=== PATIENT | male | born 1940 | race Caucasian/White ===

== ENCOUNTER 2016-12-26 03:50 | Inpatient (IN) | payer OTHER ==
[~2016-12-26] VITALS: Ht 195.6 cm; Wt 83.0 kg
--- NOTE | 2016-12-26 00:33 | NUR ---
PT REPOSITIONED Q2H ON TELEMETRY SB BBB INCONTINENT SPONGE BATH GIVEN , VINH CHANGED, PT CONFUSED BUT COOPERATIVE TO FOLLOW COMMANDS Addendum: 12/27/16 at 0039 by Veronica Hermosillo RN THIS DOCUMENTATION IS FOR 12/27/16 AT 0030
--- NOTE | 2016-12-26 04:00 | NUR ---
Dr. Salinas evaluating patient
--- NOTE | 2016-12-26 04:00 | NUR ---
PT TAKEN TO BED 6 Addendum: 12/26/16 at 0405 by MUSVAO PT BIBA BLS. TAKEN TO BED 6
[2016-12-26 04:01] VITALS: BP 129/98
--- NOTE | 2016-12-26 04:37 | NUR ---
X-Ray at bedside.
--- NOTE | 2016-12-26 06:08 | NUR ---
Patient appears to be resting comfortably in bed. Vital Signs within normal limits. Respirations even and unlabored.
--- NOTE | 2016-12-26 06:11 | NUR ---
CALLED UP THE FAMILY BUT NOBODYS ANSWERING THE PHONE, LEAVE MESSAGES TO CALL US BACK AND TO BRING HIS MEDICINES, AND HES FOR ADMISSION.THE PATIENT ONLY KNEW THAT HES TAKING 15 PILLS DAILY BUT HE DOESNT KNOW THE NAMES.
[2016-12-26] MEDS ORDERED: LORazepam 0.5 MG TAB PO ONE (06:25)
[2016-12-26] MEDS ORDERED: ASPIRIN 325 MG TAB PO ONE (06:55)
--- NOTE | 2016-12-26 07:10 | NUR ---
Patient will be admitted to care of [facility] [place] . Admited to TELEMETRY. Will go to room 121A. Belongings list completed. Report to MYRNA BLACKMAN.
--- NOTE | 2016-12-26 07:20 | NUR ---
PT IS NOT HERE YET. GAVE REPORT TO MARISEL NORRIS.
--- NOTE | 2016-12-26 07:22 | NUR ---
RECEIVED REPORT FROM BEBA NORRIS.
--- NOTE | 2016-12-26 07:55 | NUR ---
PT ON UNIT. NO S/S OF ACUTE DISTRESS. PT IS AOX4, WITH PERIODS OF CONFUSION. IV SITE PATENT AND INTACT. PT DENIES PAIN. PT ORIENTED TO ROOM. CALL LIGHT WITHIN REACH. SAFETY MEASURES ENSURED. WILL CONTINUE TO MONITOR.
[2016-12-26 08:34] VITALS: BP 123/71
[2016-12-26] MEDS ORDERED: ACETAMINOPHEN 325 MG TAB PO PRN (09:00)
[2016-12-26] MEDS ORDERED: ONDANSETRON 4 MG/2 ML VIAL IVP PRN (09:00)
[2016-12-26] MEDS ORDERED: HYDROcodone/APAP 5/325 MG 1 TAB TAB PO PRN (09:00)
[2016-12-26] MEDS: LISINOPRIL 5 MG TAB PO SCH (09:50)
[2016-12-26] MEDS: ATORVASTATIN 20 MG TAB PO SCH (09:50)
[2016-12-26] MEDS: METOPROLOL 25 MG TAB PO SCH ×2 (09:50→21:00)
[2016-12-26] MEDS: NACL 0.9% 1,000 ML IV SCH ×2 (09:50→21:26)
--- NOTE | 2016-12-26 10:51 | NUR ---
PT RESTING IN BED. NO S/S OF ACUTE DISTRESS. PT DENIES PAIN. CALL LIGHT WITHIN REACH. SAFETY MEASURES ENSURED. WILL CONTINUE TO MONITOR.
[2016-12-26 12:00] VITALS: BP 98/55
--- NOTE | 2016-12-26 12:48 | NUR ---
PT RESTING IN BED. NO S/S OF ACUTE DISTRESS. PT DENIES PAIN. IV SITE PATENT AND INTACT. CALL LIGHT WITHIN REACH. SAFETY MEASURES ENSURED. STEPDAUGHTER AT BEDSIDE. WILL CONTINUE TO MONITOR.
[2016-12-26] MEDS ORDERED: SELEGILINE 5 MG TAB PO SCH ×4 (13:00→21:00)
[2016-12-26] MEDS ORDERED: QUEtiapine FUMARATE 25 MG TAB PO SCH ×2 (13:00→14:10)
[2016-12-26] MEDS ORDERED: CARBIDOPA/LEVODOPA 25/100 MG 1 TAB PO SCH ×3 (13:10→22:30)
--- NOTE | 2016-12-26 13:42 | NUR ---
PATIENT HAS BEEN SCREENED AND CATEGORIZED MODERATE NUTRITION RISK. PATIENT WILL BE SEEN WITHIN 3-5 DAYS OF ADMISSION. 12/28/16-12/30/[address]
--- NOTE | 2016-12-26 14:29 | NUR ---
PT RESTING IN BED. NO S/S OF ACUTE DISTRESS. PT DENIES PAIN. PT TOLERATED MEDS WELL. IV SITE PATENT AND INTACT. CALL LIGHT WITHIN REACH. WILL CONTINUE TO MONITOR.
[2016-12-26 16:00] VITALS: BP 101/57
--- NOTE | 2016-12-26 16:30 | NUR ---
NO S/S OF ACUTE DISTRESS. PT UP AND AMBULATING TO BATHROOM. CALL LIGHT WITHIN REACH. WILL CONTINUE TO MONITOR.
[2016-12-26] MEDS ORDERED: MECLIZINE 25 MG TAB PO PRN (17:55)
--- NOTE | 2016-12-26 19:14 | NUR ---
ENDORSED PLAN OF CARE TO NIGHT RN. PT REMAINS IN STABLE CONDITION
--- NOTE | 2016-12-26 19:15 | NUR ---
RECEIVED PT FROM MARISEL NORRIS PT IS AOX2 HX DEMENTIA ON TELEMETRY SB BBB IV ON LEFT HAND INFUSING WELL PT GENERAL WEAKNESS , REPOSITIONED Q2H
[2016-12-26 20:00] VITALS: BP 90/48
[2016-12-26] MEDS: clonazePAM 0.5 MG TAB PO SCH (21:34)
[2016-12-26] MEDS: CITALOPRAM 20 MG TAB PO SCH (21:34)
[2016-12-26] MEDS: QUEtiapine FUMARATE 25 MG TAB PO SCH (21:35)
[2016-12-26] MEDS: DONEPEZIL 10 MG TAB PO SCH (21:35)
[2016-12-26] MEDS: SELEGILINE 5 MG TAB PO SCH (21:36)
--- NOTE | 2016-12-26 22:00 | NUR ---
PT REPOSITIONED SPONGE BAT GIVEN , LINEN CHANGED ON TEL SB BBB
[2016-12-27] VITALS: BP 90/40
--- NOTE | 2016-12-27 00:40 | NUR ---
PT AWAKE SB BBB ON TELEMETRY REPOSITIONED, INCONTINENT LINEN CHANGED, NOT DISTRESS NOTED
[2016-12-27 04:00] VITALS: BP 96/51
--- NOTE | 2016-12-27 07:15 | NUR ---
RECEIVED REPORT FROM BEBA RN. PT SLEEPING IN BED. AAOX3. NO S/S OF ACUTE DISTRESS. PT DENIES PAIN. IV SITE PATENT AND INTACT. CALL LIGHT WITHIN REACH. SAFETY MEASURES ENSURED. WILL CONTINUE TO MONITOR.
[2016-12-27 07:47] VITALS: BP 128/57
[2016-12-27] MEDS: metFORMIN 500 MG TAB PO SCH (08:08)
[2016-12-27] MEDS: ATORVASTATIN 20 MG TAB PO SCH (08:08)
[2016-12-27] MEDS: LISINOPRIL 5 MG TAB PO SCH (08:09)
[2016-12-27] MEDS: QUEtiapine FUMARATE 25 MG TAB PO SCH ×2 (08:09→20:44)
[2016-12-27] MEDS: SELEGILINE 5 MG TAB PO SCH ×2 (08:09→20:43)
[2016-12-27] MEDS: CARBIDOPA/LEVODOPA 25/100 MG 1 TAB PO SCH ×3 (08:10→16:43)
[2016-12-27] MEDS: METOPROLOL 25 MG TAB PO SCH (08:10)
--- NOTE | 2016-12-27 10:01 | NUR ---
PT TOLERATED AM MEDS WELL. NO S/S OF ACUTE DISTRESS. PT DENIES PAIN. IV SITE PATENT AND INTACT. CALL LIGHT WITHIN REACH. SAFETY MEASURES ENSURED. WILL CONTINUE TO MONITOR.
[2016-12-27] MEDS ORDERED: MAG SULF 2000 MG/WATER PREMIX 50 ML IV SCH (10:30)
--- NOTE | 2016-12-27 11:53 | NUR ---
PT RESTING IN BED. NO S/S OF ACUTE DISTRESS. PT DENIES PAIN. CALL LIGHT WITHIN REACH. SAFETY MEASURES ENSURED. WILL CONTINUE TO MONITOR.
--- NOTE | 2016-12-27 14:57 | NUR ---
PT RESTING IN BED. NO S/S OF ACUTE DISTRESS. PT DENIES PAIN. CALL LIGHT WITHIN REACH. SAFETY MEASURES ENSURED. WILL CONTINUE TO MONITOR.
[2016-12-27 16:00] VITALS: BP 128/80
--- NOTE | 2016-12-27 19:17 | NUR ---
ENDORSED PLAN OF CARE TO NIGHT RN. PT REMAINS IN STABLE CONDITION.
--- NOTE | 2016-12-27 19:30 | NUR ---
RECEIVED FROM AM RN IN BED SITTING UP AND WATCHING TV. AWAKE AND ALERT. ABLE TO VERBALIZE SIMPLE NEEDS. NO SOB. DENIES PAIN AT THIS TIME. CALL LIGHT WITH IN REACH. ENCOURAGED TO CALL FOR ANY HELP HE MAY NEED OR IF IN PAIN. "OK". MEDICAL SURGICAL PT. AFEBRILE.
[2016-12-27] MEDS: clonazePAM 0.5 MG TAB PO SCH (20:43)
[2016-12-27] MEDS: DONEPEZIL 10 MG TAB PO SCH (20:44)
[2016-12-27] MEDS: CITALOPRAM 20 MG TAB PO SCH (20:44)
--- NOTE | 2016-12-27 23:35 | NUR ---
PT. STILL AWAKE AND WATCHING TV. ABLE TO USE CALL LIGHT FOR HELP. ENCOURAGED TO SLEEP. "NOT SLEEPY YET". BED ALARM ON.
[2016-12-28 00:22] VITALS: BP 110/68
--- NOTE | 2016-12-28 02:10 | NUR ---
PT. SLEEPING . NO RESTLESSNESS NOTED. NEEDS WILL BE ANTICIPATED AND WILL BE MET. TOTAL CARE. PT.
--- NOTE | 2016-12-28 06:20 | NUR ---
SLEPT WELL . NO RESTLESSNESS. KEPT CLEAN AND DRY. TURNED TO SIDES BY CNAS Q 2H. MAXIMUM ASSIST RT WITH HX. PARKINSON'S DSE . NEEDS ANTICIPATED AND MET THIS SHIFT. ABLE TO VERBALIZE SIMPLE NEEDS. NO COMPLAINTS DONE THIS SHIFT.
--- NOTE | 2016-12-28 07:25 | NUR ---
ENDORSED TO THE NEXT RN FOR CONTINUITY OF CARE. STILL ASLEEP BUT WAKES UP WHEN TOUCHED. NEEDS ANTICIPATED AND MET FOR THIS SHIFT.
--- NOTE | 2016-12-28 07:40 | NUR ---
RECEIVED PT LYING IN BED SLEEPING BUT WAS EASILY ROUSABLE. NO C/O PAIN VOICED BY PT. SHIFT ASSESSMENT DONE AND CHARTED. PLAN OF CARE, MEDS, TREATMENTS AND SAFETY DISCUSSED WITH PT WITH QUESTIONABLE UNDERSTANDING. WILL CONTINUE TO CHECK ON PT.
[2016-12-28 08:00] VITALS: BP 91/55
--- NOTE | 2016-12-28 09:00 | NUR ---
PT TOOK DIET AND FLUIDS WELL WHEN FED. TOOK PO MEDS WELL. WILL CONTINUE TO CHECK ON PT.
[2016-12-28] MEDS: metFORMIN 500 MG TAB PO SCH (09:31)
[2016-12-28] MEDS: SELEGILINE 5 MG TAB PO SCH ×2 (09:31→20:16)
[2016-12-28] MEDS: QUEtiapine FUMARATE 25 MG TAB PO SCH ×2 (09:31→20:16)
[2016-12-28] MEDS: CARBIDOPA/LEVODOPA 25/100 MG 1 TAB PO SCH ×3 (09:31→17:02)
--- NOTE | 2016-12-28 10:30 | NUR ---
PT TURNED AND REPOSITIONED AFTER AM CARE WITH 2 ASSISTS.
--- NOTE | 2016-12-28 12:30 | NUR ---
PT TOOK LUNCH AND FLUIDS WELL. PT'S DAUGHTER WAS IN TO SEE PT. NO CHANGES NOTED IN PT'S CONDITION.
--- NOTE | 2016-12-28 15:00 | NUR ---
PT'S DAUGHTER VOICED CONCERN RE PLAN FOR PT. DR. RICHMOND MADE AWARE OF SAME AND MD WENT TO SEE PT'S DAUGHTER AT PT'S ROOM.
[2016-12-28 16:00] VITALS: BP 95/75
--- NOTE | 2016-12-28 17:30 | NUR ---
PT WAS INCONTINENT OF URINE AND MOHIT CARE DONE AND LINEN CHANGED. PT TURNED AND REPOSITIONED. PT MEDICATED WITH TYLENOL FOR C/O BACK PAIN. WILL CONTINUE TO CHECK ON PT.
--- NOTE | 2016-12-28 19:20 | NUR ---
REPORT GIVEN TO MACIE CORBIN AT BEDSIDE. NO CHANGES NOTED IN PT'S CONDITION.
--- NOTE | 2016-12-28 19:21 | NUR ---
PATIENT IS CURRENTLY RESTING IN BED DENIES PAIN AND DISCOMFORT.PATIENT GETS CONFUSED AND KEEPS SAYING,"NOBODY HAS CAME IN THE ROOM AND HAVEN'T SEEN ANYONE FOR HOURS."PATIENT CONTINUES TO BE REORIENTED TO REALITY NEEDED.PATIENT EDUCATED ON HOW TO USE THE INCENTIVE SPIROMETER FOR BREATHING EXERCISES RETURN DEMO DONE BY THE PATIENT.PATIENT CONTINUES TO HAVE SCD'S TO BOTH LOWER EXTREMITIES CURRENTLY ON FOR DVT PROPHALAXIS.FALL PRECAUTIONS IMPLEMENTED WILL CONTINUE TO MONITOR. CALL LIGHT WITHIN REACH.
--- NOTE | 2016-12-28 19:35 | NUR ---
Patient's Plan of Care was discussed and reviewed with BRIDGE EXPERT: ADRIANA.
[2016-12-28 20:00] VITALS: BP 93/53
--- NOTE | 2016-12-28 20:16 | NUR ---
EDUCATION GIVEN ON HIS ROUTINE MEDICATION AND PATIENT TOOK HIS ROUTINE MEDICATION WELL.WILL CONTINUE TO MONITOR.
[2016-12-28] MEDS: DONEPEZIL 10 MG TAB PO SCH (20:17)
[2016-12-28] MEDS: clonazePAM 0.5 MG TAB PO SCH (20:17)
[2016-12-28] MEDS: CITALOPRAM 20 MG TAB PO SCH (20:17)
[2016-12-28] MEDS ORDERED: ATORVASTATIN 20 MG TAB PO SCH (21:00)
--- NOTE | 2016-12-28 22:30 | NUR ---
PATIENT STABLE RESTING IN BED FREQUENT VISUAL CHECKS DONE.WILL CONTINUE TO MONITOR.CALL LIGHT WITHIN REACH.
--- NOTE | 2016-12-28 23:44 | NUR ---
PATIENT SLEEPING QUIETLY AT THIS TIME PATIENT CAN BE SEEN FROM THE NURSES STATION.WILL CONTINUE TO MONITOR.
--- NOTE | 2016-12-29 02:06 | NUR ---
PATIENT CURRENTLY ASLEEP IN BED NO DISTRESS.CONTINUE TO BE DRY AND INTACT WILL CONTINUE TO MONITOR.
--- NOTE | 2016-12-29 04:50 | NUR ---
PATIENT SLEEPING WELL IN BED NO PAIN OR DICOMFORT NOTED,PATIENT CONTINUES TO BE KEPT CLEAN AND DRY WILL CONTINUE TO MONITOR.
[2016-12-29 05:00] VITALS: BP 104/56
--- NOTE | 2016-12-29 06:00 | NUR ---
PATIENT HAD ANOTHER EPISODE OF INCONTINENCE PATIENT WAS CLEANED WITH THE ASSISTANCE OF ASH BOONE.PATIENT WAS THEN PLACED SUPINE FOR BREAKFAST AND WAS GIVEN AN EXTRA BLANKET.
--- NOTE | 2016-12-29 07:25 | NUR ---
PATIENT IN BED AWAKE REPORT ENDORSED TO MYRNA HUGHES HE WILL RESUME CARE OF THE PATIENT.
--- NOTE | 2016-12-29 07:40 | NUR ---
PT LYING IN BED COMFORTABLY SLEEPING AND WAS IN NO DISTRESS. PT ROUSABLE AND VOICED NO C/O PAIN. SHIFT ASSESSMENT DONE AND CHARTED. PLAN OF CARE, MEDS, TREATMENTS AND SAFETY DISCUSSED WITH PT WITH QUESTIONABLE UNDERSTANDING. WILL CONTINUE TO CHECK PT.
[2016-12-29] MEDS: metFORMIN 500 MG TAB PO SCH (08:15)
[2016-12-29] MEDS: QUEtiapine FUMARATE 25 MG TAB PO SCH ×2 (08:16→21:26)
[2016-12-29] MEDS: CARBIDOPA/LEVODOPA 25/100 MG 1 TAB PO SCH ×3 (08:16→17:53)
[2016-12-29] MEDS: SELEGILINE 5 MG TAB PO SCH ×2 (08:16→21:26)
[2016-12-29] MEDS ORDERED: MAGNESIUM OXIDE 400 MG TAB PO SCH (08:55)
--- NOTE | 2016-12-29 09:30 | NUR ---
PT TOOK PO MEDS AND FLUIDS WELL. NO CHANGES NOTED IN PT'S CONDITION.
--- NOTE | 2016-12-29 12:30 | NUR ---
PT TOOK DIET AND FLUIDS WELL WITH ASSIST. PT'S DAUGHTER VISITING AT THIS TIEM.
[2016-12-29] MEDS ORDERED: MAGNESIUM CITRATE 300 ML BTL PO SCH (15:20)
[2016-12-29] MEDS: KETOROLAC 15 MG/ML VIAL IVP PRN ×2 (15:26→21:32)
--- NOTE | 2016-12-29 15:26 | NUR ---
TORADOL IVP GIVEN PER PRN ORDER FOR C/O ABDOMINAL PAIN 06/01. WILL CONTINUE TO CHECK ON PT.
[2016-12-29 16:03] VITALS: BP 110/69
--- NOTE | 2016-12-29 16:30 | NUR ---
PT STATED THAT HIS PAIN WAS BETTER BUT HE FELT CONSITPATED AND HAD NO BM FOR SEVERAL DAYS. DR. RICHMOND NOTIFIED OF SAME AND GAVE NEW ORDERS.
--- NOTE | 2016-12-29 18:30 | NUR ---
PT TOOK DIET AND FLUIDS WELL. MAG CITRATE GIVEN PER MD'S ORDER. NO RESULT YET AT THIS TIME.
--- NOTE | 2016-12-29 19:10 | NUR ---
PATIENT IS CURRENTLY RESTING IN BED ENCOURAGED TO DRINK THE [place] LAXATIVE PATIENT DRINKING IT WELL TAKES SIPS.PATIENT WAS CLEANED TURNED AND REPOSITIONED WITH THE ASSISTANCE OF ASH BOONE.FALL PRECAUTIONS IMPLEMENTED AND CONTINUES TO HAVE THE SCD'S ON FOR DVT PROPHALAXIS. WILL CONTINUE TO MONITOR.
--- NOTE | 2016-12-29 19:10 | NUR ---
REPORT GIVEN TO MACIE VARMA. NO CHANGES NOTED IN PT'S CONDITION.
[2016-12-29 20:00] VITALS: BP 94/51
[2016-12-29] MEDS: clonazePAM 0.5 MG TAB PO SCH (21:25)
[2016-12-29] MEDS: DONEPEZIL 10 MG TAB PO SCH (21:26)
[2016-12-29] MEDS: CITALOPRAM 20 MG TAB PO SCH (21:26)
--- NOTE | 2016-12-29 21:26 | NUR ---
EDUCATION GIVEN ON ROUTINE MEDICATIONS AND PATIENT AGREES TO TAKE THE MEDICATION.PATIENT'S MEDS CRUSHED AND MIXED WITH APPLESAUCE AND PATIENT TOOK MEDS WELL.WILL CONTINUE TO MONITOR.PATIENT TOOK ALL OF THE LAXATIVE DRINK.CALL LIGHT WITHIN REACH.
--- NOTE | 2016-12-29 22:00 | NUR ---
Patient's Plan of Care was discussed and reviewed with MACHINE STUFFER: MACIE BATES
--- NOTE | 2016-12-29 22:15 | NUR ---
PATIENT PASSING GAS.PATIENT CHECKED PATIENT REMAINS CLEAN AND DRY.WILL CONTINUE TO MONITOR.
[2016-12-30] VITALS: BP 102/64
--- NOTE | 2016-12-30 01:05 | NUR ---
PATIENT IS CURRENTLY AWAKE AND CONFUSED ON AND OFF WAS TURNED AND REPOSITIONED WITH THE ASSISTANCE OF ASH BOONE.NEEDS MET WILL CONTINUE TO MONITOR.
--- NOTE | 2016-12-30 02:40 | NUR ---
PATIENT WAS TURNED AND REPOSITIONED FOR COMFORT.
--- NOTE | 2016-12-30 04:34 | NUR ---
PATIENT WAS TURNED AND REPOSITIONED BY ASH PEREZ AND ASH BOONE.WILL CONTINUE TO MONITOR. CALL LIGHT WITHIN REACH.
[2016-12-30] MEDS: KETOROLAC 15 MG/ML VIAL IVP PRN ×2 (04:55→18:56)
--- NOTE | 2016-12-30 06:58 | NUR ---
PATIENT CURRENTLY SLEEPING SCD'S ON TO BLE AND CONTINUES EDUCATION GIVEN ON HOW TO USE THE INCENTIVE SPIROMETER.REINFORCEMENT NEEDED.PATIENT PASSING GAS DURING THE NIGHT BUT NO BOWEL MOVEMENT YET.
--- NOTE | 2016-12-30 07:10 | NUR ---
PATIENT IS CURRENTLY RESTING IN BED REPORT ENDORSED TO MYRNA AMIN AT BEDSIDE PATIENT IN NO DISTRESS SHE WILL RESUME CARE OF THE PATIENT.
--- NOTE | 2016-12-30 07:10 | NUR ---
RECEIVED REPORT FROM THE SOFA BACK UPHOLSTERER NURSE AT BEDSIDE FOR CONTINUITY OF CARE. PT IS AWAKE, BUT CONFUSED. HE WAS ASKING QUESTIONS THAT DIDN'T MAKE ANY SENSE. NOTED THE IV ON R HAND 22G SL, WRAPPED IN GAUZE. I SEE THE INCENTIVE SPIROMETER AT BEDSIDE, SCD'S IN PLACE. PER NIGHTSHIFT NURSE, DIFFICULTY SWALLOWING PILLS. NEED TO CRUSH AND MIX WITH APPLE SAUCE. WILL CONTINUE TO MONITOR PT.
[2016-12-30 08:00] VITALS: BP 116/68
[2016-12-30] MEDS: CARBIDOPA/LEVODOPA 25/100 MG 1 TAB PO SCH ×3 (09:10→17:23)
[2016-12-30] MEDS: SELEGILINE 5 MG TAB PO SCH ×2 (09:10→20:51)
[2016-12-30] MEDS: metFORMIN 500 MG TAB PO SCH (09:10)
[2016-12-30] MEDS: QUEtiapine FUMARATE 25 MG TAB PO SCH ×2 (09:11→20:54)
--- NOTE | 2016-12-30 09:15 | NUR ---
ADMINISTERED MORNING MEDS. CRUSHED AND IN APPLE SAUCE. PT TOLERATED WELL. DAUGHTER CALLED . WILL BE HERE BY NOON. WONDERING WHEN HE WILL BE TRANSFERRED.
--- NOTE | 2016-12-30 10:49 | NUR ---
CNAS ARE DONE WITH HIS MORNING ADLS. PT IS ALL DRY AND CLEAN. PT IS ASLEEP. NO SIGNS OF DISTRESS. WILL CONTINUE TO MONITOR PT.
[2016-12-30] MEDS ORDERED: ALBUTEROL SULFATE/IPRATROPIU 3 ML SOL IH PRN (11:00)
--- NOTE | 2016-12-30 11:03 | NUR ---
SS NOTE: I SPOKE WITH PT'S STEPDAUGHTER, SCOTT REGARDING SHORT TERM SNF PLACEMENT FOR REHAB. SHE STATED THAT SHE WOULD LIKE PT TO GO TO A SNF THAT IS NEAR THE [facility]. SHE ALSO STATED THAT SHE HAS MEDICAL POWER OF WAREHOUSE TEAM LEADER OVER PT AND WILL BRING A COPY OF THE PAPERWORK WHEN SHE COMES TO SEE PT LATER TODAY.
[2016-12-30] MEDS ORDERED: LACTOBACILLUS RHAMNOSUS GG 1 EACH CAP PO SCH (11:21)
--- NOTE | 2016-12-30 11:43 | NUR ---
SS NOTE: PER JILLIAN FROM [facility] ([phone]), PT CAN GO TO ROOM 37A UNDER DR. Barrie PLATA UPON DISCHARGE. SHE ALSO STATED THAT THEY ARE ABLE TO DO ZOSYN Q8H WELL IF PT WILL NEED IV ABX IN ADDITION TO REHAB.
[2016-12-30] MEDS: PIPER/TAZO 3.375GM/D5W PREMIX 50 ML IV SCH ×2 (12:09→17:13)
--- NOTE | 2016-12-30 12:30 | NUR ---
PT REFUSED LUNCH TRAY BC IT'S PORK. IT'S AGAINST HIS ORTHODOX. NOTIFIED FNS. I OFFERED HIM A CHICKEN SALAD SANDWICH. HE ATE 1/2 OF THE SANDWICH AN 1/2 OF SOUP AN 1/2 OF THE PEARS. THE DAUGHTER IS LEAVING. HE IS SLEEPY AND WANT TO SLEEP. WILL CONTINUE TO MONITOR PT.
[2016-12-30] MEDS: ALBUTEROL SULFATE/IPRATROPIU 3 ML SOL IH SCH ×2 (12:36→19:58)
--- NOTE | 2016-12-30 13:59 | NUR ---
12/30/16 RD INITIAL ASSESSMENT COMPLETED PLEASE REFER TO NUTRITION ASSESSMENT UNDER CARE ACTIVITY FOR ESTIMATED NUTRITIONAL NEEDS. RD RECOMMENDATIONS: 1. CONTINUE CARDIAC DIET TOLERATED PER MD --PT WITH GOOD PO INTAKES, MEETING >75% OF ESTIMATED KCAL AND PROTEIN NEEDS 2. RD WILL F/U 5-7 DAYS; LOW RISK. JANEEN WILKINSON, FUENTES
--- NOTE | 2016-12-30 15:13 | NUR ---
PT SLEEPING SOUNDLY. NO SIGNS OF DISTRESS. WILL CONTINUE TO MONITOR PT.
[2016-12-30 16:00] VITALS: BP 104/63
--- NOTE | 2016-12-30 16:12 | NUR ---
* ST NOTE * Pt seen at bedside. Bedside Dysphagia and Oral Mechanism exams completed. See evaluation report for further details. Pt tolerating 2/2 alternating PO trials of regular solid saltine crackers w/out s/s of aspiration. Pt exhibiting minimal to occasional residue in oral cavity after PO intake of regular solids. Pt education completed regarding safe swallow compensatory strategies pt may employ to aid with swallow function as well as to aid with clearing oral cavity of pocketed food/residue after PO intake, with pt agreeable with and verbalizing understanding of clinician's recommendations. Pt then tolerating 4/4 alternating PO trials of thin liquid water via a straw w/out s/s of aspiration, exhibiting clear voicing WFL w/out wet or gargly vocal quality. Because pt exhibiting residue after PO intake of regular solids, it is recommended pt's PO diet consistency be modified to Mechanical soft-chopped textures with thin liquids for all meals, requiring assistance with feeding as well as close supervision by caregivers/staff during PO intake to assure aspiration precautions are in place. Pt's diet may also be downgraded to mechanical soft-ground textures with thin liquids if necessary. No further ST follow up recommended at this time. Pt and caregiver/Nursing education completed regarding results of evaluation; benefits of abiding by aspiration precautions and recommended PO diet consistency; and prognosis for improvement; with pt and caregiver/nursing agreeable with and verbalizing understanding of clinician's recommendations. Recommend: - PO diet consistency of Mechanical soft-chopped textures with thin liquids for all meals - Pt's diet may be downgraded to mechanical soft-ground textures with thin liquids if necessary - CLOSE supervision during PO intake by caregivers/staff to assure STRICT aspiration precautions are in place - Pt requires assistance with feeding No further ST follow up recommended at this time. G8996 G8997 CI G8998 CI NOMS Level 2 Time In/Out: 15:40 - 16:10
--- NOTE | 2016-12-30 17:30 | NUR ---
PT RESTING COMFORTABLY. ATE VERY LITTLE OF DINNER. PT CLAIMS, "I LOST MY APPETITE". WILL CONTINUE TO MONITOR PT.
--- NOTE | 2016-12-30 19:35 | NUR ---
ENDORSED PT TO THE MECHANICAL ENGINEERING MANAGER NURSE AT BEDSIDE FOR CONTINUITY OF CARE. PT IS RESTING COMFORTABLY. PT IS STABLE.
--- NOTE | 2016-12-30 19:36 | NUR ---
RECD. RESTING IN BED, AWAKE, A/OX2. ABLE TO VERBALIZED NEEDS. RESPIRATION EVEN AND UNLABORED. IV OF SALINE LOCK AT THE RIGHT FOREARM, PATENT AND INTACT. REORIENTED TO TIME AND DATE. PLAN OF CARE FOR THE SHIFT DISCUSSED. NEEDS REINFORCEMENT. DENIES PAIN 0/10.
--- NOTE | 2016-12-30 20:00 | NUR ---
Patient's Plan of Care was discussed and reviewed with AUTOMOBILE ASSEMBLY SUPERVISOR: COLLIN ALEX
[2016-12-30] MEDS: DONEPEZIL 10 MG TAB PO SCH (20:50)
[2016-12-30] MEDS: CITALOPRAM 20 MG TAB PO SCH (20:51)
[2016-12-30] MEDS: clonazePAM 0.5 MG TAB PO SCH (20:53)
--- NOTE | 2016-12-30 20:55 | NUR ---
DUE PO MEDICATIONS GIVEN WITH APPLE SAUCE, TOLERATED WELL.
[2016-12-31] VITALS: BP 94/53
--- NOTE | 2016-12-31 | NUR ---
SLEEPING COMFORTABLY IN BED.
[2016-12-31] MEDS: PIPER/TAZO 3.375GM/D5W PREMIX 50 ML IV SCH ×2 (00:52→05:22)
[2016-12-31] MEDS: ALBUTEROL SULFATE/IPRATROPIU 3 ML SOL IH SCH ×3 (02:00→13:00)
--- NOTE | 2016-12-31 02:00 | NUR ---
AWAKE, REQUESTED FOR WATER. ELEVATED HEAD OF BED 50 DEGREES, UNABLE TO DRINK WATER FROM THE STRAW. GIVEN SMALL SIPS FROM THE CUP.
--- NOTE | 2016-12-31 04:00 | NUR ---
CLEANSED AND REPOSITIONED IN BED, NO COMPLAINT OF PAIN.
--- NOTE | 2016-12-31 05:00 | NUR ---
REQUESTED FOR WATER, PUT HEAD UPRIGHT, ABLE TO SIP SMALL AMOUNT OF WATER BUT COUGHED AFTER DRINKING.
[2016-12-31] MEDS: KETOROLAC 15 MG/ML VIAL IVP PRN ×2 (06:01→09:00)
--- NOTE | 2016-12-31 07:30 | NUR ---
RESTING IN BED, CONDITION REMAIN STABLE. ENDORSED TO MYRNA BUENO FOR CONTINUITY OF CARE.
--- NOTE | 2016-12-31 07:31 | NUR ---
RECEIVED REPORT FROM THE STAMPING BENCH DIE MAKER NURSE AT BEDSIDE. PT IS AWAKE. PT IS THIRSTY. I OFFERED HIM WATER. GAUZE WRAPPED ON R FA. IV STILL INTACT AND PATENT. C/O OF PAIN IN HIS BACK. REPOSITIONED HIM. V/S WITHIN NORMAL RANGE. PER MD, SOON TRANSPORTATION IS ARRANGED, PT CAN BE TRANSFERRED TO [facility]. SPOKE TO DAUGHTER THIS MORNING. DAUGHTER AWARE OF TRANSFER. I WILL CALL HER WITH TIME WHEN I KNOW. SHE WILL MEET HIM THERE. WILL CONTINUE TO MONITOR PT.
[2016-12-31 08:00] VITALS: BP 119/61
[2016-12-31] MEDS: QUEtiapine FUMARATE 25 MG TAB PO SCH (08:51)
[2016-12-31] MEDS: SELEGILINE 5 MG TAB PO SCH (08:51)
[2016-12-31] MEDS: metFORMIN 500 MG TAB PO SCH (08:51)
[2016-12-31] MEDS: CARBIDOPA/LEVODOPA 25/100 MG 1 TAB PO SCH ×2 (08:55→12:20)
[2016-12-31] MEDS ORDERED: LACTOBACILLUS RHAMNOSUS GG 1 EACH CAP PO SCH (09:00)
--- NOTE | 2016-12-31 09:00 | NUR ---
ADMINISTERED MORNING MEDS. CRUSHED AND IN PUDDING. PT TOLERATED WELL. C/O OF PAIN. GAVE HIM HIS PAIN MEDS. HE C/O BEING WET AND SOILED. CALLED PHOTOFINISHING LABORATORY WORKER TO CHANGE PT AND REPOSITION PT.
--- NOTE | 2016-12-31 10:29 | NUR ---
P.T. IS HERE TO ASSESS PT.
--- NOTE | 2016-12-31 11:05 | NUR ---
SPOKE WITH STEP DAUGHTER, SCOTT, [phone], AND INFORMED HER THAT THE PATIENT WILL BE GOING TO [facility] TODAY TO ROOM 37A PHONE [phone]. I CALLED [facility] AND FOR [facility]SP[facility] THE COST IS $126. I ASKED SCOTT IF SHE WOULD PAY FOR THE COST OF TRANSPORT AND SHE SAID SHE WOULD . I TOLD HER THAT [facility]OULD CALL HER FOR THE PAYMENT.
[2016-12-31] MEDS ORDERED: ZOSYN3.375 GM IV (11:52)
[2016-12-31] MEDS ORDERED: CELEXA20 MG PO (11:52)
[2016-12-31] MEDS ORDERED: METFORMIN HCL500 MG PO (11:52)
[2016-12-31] MEDS ORDERED: CLONAZEPAM0.5 M1 PO (11:52)
[2016-12-31] MEDS ORDERED: CULTURELLE10 Billion PO (11:52)
[2016-12-31] MEDS ORDERED: ELDEPRYL5 M1 PO (11:52)
[2016-12-31] MEDS ORDERED: SINEMET 25/1001 TAB PO (11:52)
[2016-12-31] MEDS ORDERED: NOVAPLUS ONDA2 MG/M1 IVP (11:52)
[2016-12-31] MEDS ORDERED: IPRATROPIUM BROM3 M1 IH ×2 (11:52)
[2016-12-31] MEDS ORDERED: QUETIAPINE FUMA25 M1 PO (11:52)
[2016-12-31] MEDS ORDERED: ARICEPT10 MG PO (11:52)
[2016-12-31] MEDS ORDERED: ACETAMINOPHEN325 M2 PO (11:52)
[2016-12-31] MEDS ORDERED: [UNRECOGNIZED DRUG - OTHER] IVP (11:52)
[2016-12-31] MEDS ORDERED: MECLIZINE HYDRO25 M2 PO (11:52)
--- NOTE | 2016-12-31 12:04 | NUR ---
CALLED AND SET UP [facility] FOR 3:30P.M. SPOKE WITH LAVINIA AND INFORMED HER THE PAYER WILL BE SCOTT, STEPDAUGHTER. I CALLED XIMENA NORRIS AND INFORMED HER OF THE TIME OF TRANSPORT.
[2016-12-31] MEDS ORDERED: PIPER/TAZO 3.375GM/D5W PREMIX 50 ML IV SCH (13:00)
--- NOTE | 2016-12-31 13:30 | NUR ---
PHYSICAL THERAPY CO-SIGN The Physical Therapy Progress Notes documented by Creative Perfumer have been reviewed. Reviewed/Co-Signed by: Dori Merino, PT Documentation Done by: Rodríguez Dennis PTA I concur with the documentation of this WASTE REMOVALIST. Plan: continue PT as per plan of care. Addendum: 12/31/16 at 1427 by Dori Merino PT Amended: Links added.
--- NOTE | 2016-12-31 14:11 | NUR ---
GAVE REPORT TO JOSE ANTONIO AT [facility]. NOTIFIED THEM OF THE TRANSPORTATION ARRIVING AT 3:30PM. WILL GET PT READY FOR [facility]. D/C PAPERWORK IN PROCESS.
--- NOTE | 2016-12-31 15:45 | NUR ---
PT PICKED UP BY [facility]. IV SL. SCD'S REMOVED. PT IN TRANSPORT GOWN. ALL PERSONAL BELONGINGS IN BAG. PT WEARING HIS GLASSES. ALL PAPERWORK SIGNED AND D/C PACKET WITH PT. PT IS IN STABLE CONDITION. REORIENTED HIM TO [facility] AND THAT HIS DAUGHTER WILL VISIT HIM THERE. TRANSPORTERS WHEELED HIM OUT IN [facility].
== END 2016-12-31 15:45 | DRG 205 ==
LOC: MED 03:50 → MTU 06:41
PROVIDERS: ADMIT Family Medicine; ATTEND Family Medicine
DX: M94.0 Chondrocostal junction syndrome [Tietze] (principal); N17.0 Acute kidney failure with tubular necrosis; E44.0 Moderate protein-calorie malnutrition; J98.11 Atelectasis; G20 Parkinson's disease; G90.9 Disorder of the autonomic nervous system, unspecified; E86.0 Dehydration; E83.42 Hypomagnesemia; K80.20 Calculus of gallbladder without cholecystitis without obstruction; Z68.21 Body mass index [BMI] 21.0-21.9, adult